=== PATIENT | male | born 1935 | race Caucasian/White ===

== ENCOUNTER → 2016-09-04 | Outpatient (CLI) | payer OTHER ==
--- NOTE | 2016-09-04 10:19 | MR ---
MRI Lumbar Spine Without Contrast. HISTORY: Low back pain. ICD-10 code M54.5 COMPARISON: August 27, 2015. TECHNIQUE: MRI was performed of the lumbar spine using a 1.5 [employer] MRI system. Sagittal and axial carolann ging was obtained with standard imaging sequences. FINDINGS: There is a mild dextroscoliotic curvature of the lumbar spine. There is disk desiccation an d disk height narrowing and osteophytosis at multiple levels in the lumbar spine. No evidence for com pression fracture. Conus is visualized at L1 and is unremarkable. A benign-appearing lesion is seen in the left ilium near the sacroiliac joint stable in appearance. N o aggressive bone lesion is visualized. Renal cortical cysts are seen right kidney similar in appeara nce although incompletely included in the field of view. T12-L1 level demonstrates a minimal broad-based annular bulge causing no significant encroachment. L1-L2 level demonstrates a broad-based annular bulge and facet arthropathy causing mild spinal canal and right lateral recess narrowing similar in appearance. There is moderate right neural foraminal an d mild left neural foraminal narrowing similar in appearance. L2-L3 level demonstrates a broad-based annular bulge and moderate facet arthropathy. This is causing moderate central spinal canal and bilateral lateral recess narrowing, left greater than right. There is moderate bilateral neural foraminal narrowing. Similar appearance to the prior exam. L3-L4 level demonstrates a broad-based annular bulge. There is a left lateral osteophyte. Moderate fa cet arthropathy is seen bilaterally. There is moderate central spinal canal narrowing with slight wor sening over the interval and bilateral lateral recess narrowing. Severe left and moderate to severe r ight neural foraminal narrowing similar in appearance. L4-L5 level demonstrates a broad-based annular bulge and severe facet arthropathy bilaterally. This i s causing severe central spinal canal and bilateral lateral recess narrowing. Severe bilateral neural foraminal narrowing. Similar appearance to the prior examination. L5-S1 level demonstrates a broad-based annular bulge. There is a left parasagittal protrusion mildly compressing the left S1 nerve root at the lateral recess similar in appearance. Facet arthropathy is seen bilaterally. Severe bilateral neural foraminal narrowing unchanged. 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 There may be mi nimal progression of disease at L3-L4 with an otherwise stable appearance. Level of most severe centr al spinal canal narrowing is at L4-L5 stable in appearance. Other levels as detailed above.
== END ==
LOC: FIMAGING 08:45
PROVIDERS: ATTEND Physician Assistant
DX: M51.86 Other intervertebral disc disorders, lumbar region (principal)

== ENCOUNTER 2016-09-27 08:10 | Emergency (ER) | payer OTHER ==
[2016-09-27 08:16] VITALS: RESP 16
--- NOTE | 2016-09-27 09:15 | EDPHY ---
H & P Time Seen by Provider: 09/27/16 08:44 HPI/ROS: Chief complaint. Wrist injury HPI. 81-year-old male fell getting out of the shower yesterday. He thinks he passed out and fell backwards into the shower. He stuck his arm out to struck tried to break his fall and sustained injury to his right wrist. Denies headache neck pain chest back pain abdominal pain other injuries. He has had a previous syncopal episode. This occurred yesterday. He has no symptoms today other than right wrist pain and swelling. Patient is right handed. No previous injury ROS Constitutional. no fever/chills, no weakness Eyes. no problems with vision ENT. no sore throat, no nasal drainage Cardiovascular. no chest pain Respiratory. no shortness of breath, no cough Abdominal. no abdominal pain, no nausea/vomiting, no diarrhea . no problems urinating MS. Right wrist pain and swelling Skin. no rash Lymph. no swollen glands Neuro. no headache, no dizziness, no difficulty walking or with speech Past Medical/Surgical History: Past medical history significant for hypertension, dyslipidemia, hypothyroid, coronary artery bypass graft, leukemia with splenectomy Social History: , nonsmoker, no alcohol Smoking Status: Never smoked Physical Exam: General Appearance: Alert pleasant well-developed male mild distress vital signs stable Eyes: Pupils equal and round no pallor or injection. ENT, Mouth: Mucous membranes are moist. Respiratory: There are no retractions, lungs are clear to auscultation. Cardiovascular: Regular rate and rhythm. Gastrointestinal: Abdomen is soft and nontender, no masses, bowel sounds normal. Neurological: Awake and alert, sensory and motor exams grossly normal. Skin: Warm and dry, no rashes. Musculoskeletal: Neck is supple nontender. Extremities tenderness and swelling to the dorsum of the right wrist over the distal radius. No significant deformity. Psychiatric: Patient is oriented X 3, there is no agitation. Constitutional: Initial Vital Signs Temperature (C) 36.3 C 09/27/16 08:11 Heart Rate 81 09/27/16 08:11 Respiratory Rate 16 09/27/16 08:11 Blood Pressure 149/75 H 09/27/16 08:11 O2 Sat (%) 90 L 09/27/16 08:11 O2 Delivery Mode Room Air Allergies/Adverse Reactions: Iodinated Contrast Media - Oral and [IV Dye, Iodine Containing Contrast ] Allergy (Intermediate, Verified 07/09/13 15:03) VEINS "POPPED UP AND WERE HARD" azithromycin [From Zithromax] Allergy (Verified 12/06/14 14:32) ceftriaxone sodium [From Rocephin] Allergy (Verified 12/06/14 14:31) Home Medications: Medication Instructions Recorded Aspirin [Aspirin 81mg (*)] 81 mg PO HS 12/06/14 Carvedilol [Coreg (*)] 3.125 mg PO HS 12/06/14 Levothyroxine [Synthroid 75 mcg 75 mcg PO HS 12/06/14 (*)] Simvastatin [Zocor] 40 mg PO HS 12/06/14 predniSONE 10 mg PO DAILY PRN 12/06/14 Colesevelam HCl [Welchol (*)] 3.75 mg PO DAILY 12/08/14 Acyclovir [Zovirax 400 mg (*)] 400 mg PO BID 06/17/15 Allopurinol [Allopurinol 300 MG 300 mg PO HS 06/17/15 (RX)] Herbals/Supplements -Info Only 1 ea PO DAILY 06/17/15 Lisinopril [Zestril 5 mg (*)] 5 mg PO HS 06/17/15 Mbx Solution 5 ml PO ACHS 06/17/15 Slo-Niacin 1 tab PO HS 06/17/15 Sulfamethox/Tmp 800/160 mg 1 tab PO MWF 06/17/15 [Bactrim DS] Acetaminophen [Tylenol 325mg (*)] 650 mg PO Q6 PRN #0 tab 06/20/15 Acyclovir [Zovirax 400 mg (*)] 400 mg PO BID #0 tab 06/20/15 Allopurinol [Allopurinol 300 MG 300 mg PO HS #0 tab 06/20/15 (RX)] Ascorbic Acid [Vitamin C 500 mg 1,000 mg PO QID #0 tab 06/20/15 (*)] Aspirin [Aspirin 81mg (*)] 81 mg PO HS #0 tab 06/20/15 Atorvastatin Calcium [Lipitor 20 20 mg PO HS #0 tab 06/20/15 mg (*)] Carvedilol [Coreg (*)] 3.125 mg PO HS #0 tab 06/20/15 Colestipol HCl [Colestid] 5 gm PO DAILY #0 pkt 11/10/15 Levothyroxine [Synthroid 75 mcg 75 mcg PO HS #0 tab 06/20/15 (*)] Niacin ER [Niaspan 1000 mg (*)] 1,000 mg PO HS #0 tab 06/20/15 Pantoprazole Sodium [Protonix IV 40 mg IV BID #0 vial 06/20/15 (*)] Sulfamethox/Tmp 800/160 mg 1 ea PO MWF #0 tab 06/20/15 [Bactrim DS] levOFLOXACIN [levAQUIN (*)] 750 mg PO Q2D@1000 #0 tab 06/20/15 predniSONE 20 mg PO DAILY #0 tab 06/20/15 Medical Decision Making - Diagnostics Imaging: X-ray right wrist interpreted by me as without fracture dislocation. I reviewed the film and discussed it with Dr. Chiang who agrees with the interpretation. 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 Post splint application shows good anatomic position and distal motor vascular sensitivity to be intact ED Course/Re-evaluation: Re-evaluation patient is stable. The patient and I discussed treatment plan including criteria for return and importance of follow-up. I recommended that we do an EKG because of the syncopal episode. However the patient declines and he will see his regular physician for further workup Differential Diagnosis: I considered fracture, dislocation, sprain of the wrist. I considered cardiac arrhythmia is as possible etiology of his syncope Departure - Departure Disposition: Home, Routine, Self-Care Clinical Impression: Right wrist sprain Qualifiers: Encounter type: initial encounter Qualified Code(s): S63.501A - Unspecified sprain of right wrist, initial encounter Condition: Good Instructions: Wrist Sprain (ED) Additional Instructions: Ice off and on for the next 24 hours. Ibuprofen 600 mg every 6 hours. Pain medication that you have at home in addition for pain. Splint on for 1 week. Follow up with Dr. Painter for continuing pain. Please follow-up with Dr. Painter for further evaluation of passing out episode Referrals: Pete Painter MD [Primary Care Provider] - As per Instructions
[2016-09-27 09:24] VITALS: BP 146/85; PULSE 84; TEMP 99.1; O2SAT 95
== END 2016-09-27 09:23 | disposition home or self-care (01) ==
DX: S63.501A Unspecified sprain of right wrist, initial encounter (principal); I10 Essential (primary) hypertension; Z95.1 Presence of aortocoronary bypass graft; Z79.82 Long term (current) use of aspirin; W18.2XXA Fall in (into) shower or empty bathtub, initial encounter
CPT/HCPCS: 73110; 99284; L3807; L3908

== ENCOUNTER 2016-10-17 19:52 | Emergency (ER) | payer OTHER, BC ==
[2016-10-17] MEDS ORDERED: IPRATROPIUM/ALBUTEROL 3 ML DEYVIAL IH ONE (20:30)
[2016-10-17 21:23] LABS: % IMMATURE GRANULYOCYTES 0.3 % (0.0-1.1); ABSOLUTE IMMATURE GRANULOCYTES 0.02 10^3/uL (0.00-0.10); ABSOLUTE NRBC COUNT 0.02 10^3/uL (0-0.01); ADD DIFF? NO; ADD MORPH? NO; ADD SCAN? NO; ATYPICAL LYMPHOCYTE FLAG 10 (0-99); FRAGMENT RBC FLAG 0 (0-99); HEMOGLOBIN 13.3 g/dL (13.7-17.5); LEFT SHIFT FLG 0 (0-99); LIPEMIA HEMOLYSIS FLAG 90 (0-99); MEAN CELL HEMOGLOBIN 34.8 pg (27.9-34.1); MEAN CELL HEMOGLOBIN CONCENTR. 34.1 g/dL (32.4-36.7); MEAN CELL VOLUME 102.1 fL (81.5-99.8); MEAN PLATELET VOLUME 9.6 fL (8.7-11.7); NRBC-AUTO% 0.3 % (0.0-0.2); PLATELET CLUMPS FLAG 0 (0-99); PLATELET COUNT 238 10^3/uL (150-400); RED BLOOD CELL COUNT 3.82 10^6/uL (4.40-6.38); RED CELL DISTRIBUTION WIDTH 14.8 % (11.5-15.2)
[2016-10-17 21:28] LABS: INR 0.96 (0.83-1.16); PROTIME(PATIENT) 12.7 SEC (12.0-15.0)
[2016-10-17 21:29] LABS: APTT 27.3 SEC (23.0-38.0)
[2016-10-17 21:44] LABS: ANION GAP 7 mEq/L (8-16); CALCIUM 8.8 mg/dL (8.5-10.4); CARBON DIOXIDE 22 mEq/l (22-31); CHLORIDE 106 mEq/L (97-110); GLOMERULAR FILTRATION RATE > 60; GLUCOSE 158 mg/dL (70-100); POTASSIUM 4.2 mEq/L (3.5-5.2); SODIUM 135 mEq/L (134-144)
--- NOTE | 2016-10-17 21:44 | EDPHY ---
HPI/HX/ROS/PE/MDM Narrative: CHIEF COMPLAINT: "I've just been coughing and started running a fever." HPI: The patient is a 81 y/o male, with a history of leukemia, arriving with his complaining of a cough for the last 3 days and a fever of 101.7F today. He describes a productive cough with yellow phlegm. He noticed mildly increased shortness of breath while lying down, but turning up his CPAP machine alleviated those symptoms completely. He has been taking Advil and prednisone for his symptoms today without improvement yet. He also has a history of leukemia and prostate cancer, but has not been on chemotherapy since last year. His spoke with Dr. Higginbotham, oncology, who referred them to the ED due to his fever. REVIEW OF SYSTEMS: Aside from elements discussed in the HPI, a comprehensive 10-point review of systems was reviewed and is negative. PMH: Leukemia for 30 years,primarily in remission and not currently on chemotherapy. Lymphoma x 2 years. Prostate cancer. Sleep apnea SOCIAL HISTORY: at bedside. Oncologist: Dr. Cardoso PHYSICAL EXAM: General:Patient is alert, in no acute distress. ENT:Eyes are normal to inspection. ENT inspection normal. Neck: Normal inspection. Full range of motion. Respiratory:No respiratory distress. Decreased air movement, no rhonchi. Cardiovascular: Regular rate and rhythm. Strong peripheral pulses. Normal cap refill. Abdomen:The abdomen is nontender to palpation. There are no peritoneal signs. There are normal bowel sounds. Back: Normal to inspection. No tenderness to palpation. Skin: Normal color. No rash. Warm and dry. Extremities: Trace lower leg edema bilaterally, otherwise normal appearance. Full range of motion. Neuro: Oriented x3. Normal motor function. Normal sensory function. ED Course: Plan for IV, sepsis labs, flu swab, and chest x-ray. Duo neb administered for symptoms. Study: Chest x-ray Indication: Cough Results: Chest x-ray was obtained. The results of the study are 1. Hyperexpansion and peribronchial thickening suggests airways disease. 2. Basilar opacities, atelectasis versus pneumonia. 3. See above report for additional findings. The study was read by the radiologist, Dr. Ceja. I viewed the images myself on the PACS system. 2240: Consulted with Dr. Higginbotham, oncology. Labs are unremarkable. She is comfortable discharging him home on antibiotics and following up as an outpatient. 2250: One dose of IV Levaquin administered here. Patient has a follow up appointment scheduled with his oncologist tomorrow, who is aware of his visit here tonight and will evaluate further antibiotics. 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 His workup is negative for pneumonia, severe sepsis or septic shock. There is no clear etiology of symptoms other than cough. We will treat the patient empirically with Levaquin and he has a follow- up appointment with oncology tomorrow morning further evaluation. His vital signs are normal and I do not see evidence for need for inpatient admission at this time. - Data Points Laboratory Results: Laboratory Results 10/17/16 21:08 10/17/16 21:08 10/17/16 10/17/16 10/17/16 21:08 21:08 21:08 WBC 6.96 10^3/uL 10^3/uL (3.80-9.50) RBC 3.82 10^6/uL L 10^6/uL (4.40-6.38) Hgb 13.3 g/dL L g/dL (13.7-17.5) Hct 39.0 % L % (40.0-51.0) MCV 102.1 fL H fL (81.5-99.8) MCH 34.8 pg H pg (27.9-34.1) MCHC 34.1 g/dL g/dL (32.4-36.7) RDW 14.8 % % (11.5-15.2) Plt Count 238 10^3/uL 10^3/uL (150-400) MPV 9.6 fL fL (8.7-11.7) Neut % (Auto) 74.3 % H % (39.3-74.2) Lymph % (Auto) 9.2 % L % (15.0-45.0) Crockett % (Auto) 9.6 % % (4.5-13.0) Eos % (Auto) 6.2 % % (0.6-7.6) Baso % (Auto) 0.4 % % (0.3-1.7) Nucleat RBC Rel Count 0.3 % H % (0.0-0.2) Absolute Neuts (auto) 5.17 10^3/uL 10^3/uL (1.70-6.50) Absolute Lymphs (auto) 0.64 10^3/uL L 10^3/uL (1.00-3.00) Absolute Monos (auto) 0.67 10^3/uL 10^3/uL (0.30-0.80) Absolute Eos (auto) 0.43 10^3/uL H 10^3/uL (0.03-0.40) Absolute Basos (auto) 0.03 10^3/uL 10^3/uL (0.02-0.10) Absolute Nucleated RBC 0.02 10^3/uL H 10^3/uL (0-0.01) Immature Gran % 0.3 % % (0.0-1.1) Immature Gran # 0.02 10^3/uL 10^3/uL (0.00-0.10) PT 12.7 SEC SEC (12.0-15.0) INR 0.96 (0.83-1.16) APTT 27.3 SEC SEC (23.0-38.0) VBG Lactic Acid Sodium 135 mEq/L mEq/L (134-144) Potassium 4.2 mEq/L mEq/L (3.5-5.2) Chloride 106 mEq/L mEq/L (97-110) Carbon Dioxide 22 mEq/l mEq/l (22-31) Anion Gap 7 mEq/L L mEq/L (8-16) BUN 18 mg/dL mg/dL (7-23) Creatinine 1.0 mg/dL mg/dL (0.7-1.3) Estimated GFR > 60 Glucose 158 mg/dL H mg/dL (70-100) Calcium 8.8 mg/dL mg/dL (8.5-10.4) Influenza Typ A,B (DFA) 10/17/16 10/17/16 21:08 20:35 WBC RBC Hgb Hct MCV MCH MCHC RDW Plt Count MPV Neut % (Auto) Lymph % (Auto) Crockett % (Auto) Eos % (Auto) Baso % (Auto) Nucleat RBC Rel Count Absolute Neuts (auto) Absolute Lymphs (auto) Absolute Monos (auto) Absolute Eos (auto) Absolute Basos (auto) Absolute Nucleated RBC Immature Gran % Immature Gran # PT INR APTT VBG Lactic Acid 0.8 mmol/L mmol/L (0.7-2.1) Sodium Potassium Chloride Carbon Dioxide Anion Gap BUN Creatinine Estimated GFR Glucose Calcium Influenza Typ A,B (DFA) NEGATIVE FOR FLU (NEGATIVE) Medications Given: Discontinued Medications Albuterol/Ipratropium (Duoneb) 3 ml IH EDNOW ONE Stop: 10/17/16 20:31 Last Admin: 10/17/16 20:40 Dose: 3 ml General Time Seen by Provider: 10/17/16 20:37 Initial Vital Signs: Initial Vital Signs Temperature (C) 37.9 C 10/17/16 20:12 Heart Rate 97 10/17/16 20:12 Respiratory Rate 18 10/17/16 20:12 Blood Pressure 158/93 H 10/17/16 20:12 O2 Sat (%) 90 L 10/17/16 20:12 O2 Delivery Mode Room Air Allergies/Adverse Reactions: Iodinated Contrast Media - Oral and [IV Dye, Iodine Containing Contrast ] Allergy (Intermediate, Verified 07/09/13 15:03) VEINS "POPPED UP AND WERE HARD" azithromycin [From Zithromax] Allergy (Verified 12/06/14 14:32) ceftriaxone sodium [From Rocephin] Allergy (Verified 12/06/14 14:31) Home Medications: Medication Instructions Recorded Carvedilol [Coreg (*)] 3.125 mg PO HS 12/06/14 Levothyroxine [Synthroid 75 mcg 75 mcg PO HS 12/06/14 (*)] predniSONE 10 mg PO DAILY PRN 12/06/14 Colesevelam HCl [Welchol (*)] 3.75 mg PO DAILY 12/08/14 Herbals/Supplements -Info Only 1 ea PO DAILY 06/17/15 Lisinopril [Zestril 5 mg (*)] 5 mg PO HS 06/17/15 Slo-Niacin 1 tab PO HS 06/17/15 Ascorbic Acid [Vitamin C 500 mg 1,000 mg PO QID #0 tab 06/20/15 (*)] Aspirin [Aspirin 81mg (*)] 81 mg PO HS #0 tab 06/20/15 Carvedilol [Coreg (*)] 3.125 mg PO HS #0 tab 06/20/15 Colestipol HCl [Colestid] 5 gm PO DAILY #0 pkt 06/20/15 Levothyroxine [Synthroid 75 mcg 75 mcg PO HS #0 tab 06/20/15 (*)] Niacin ER [Niaspan 1000 mg (*)] 1,000 mg PO HS #0 tab 06/20/15 Pantoprazole Sodium [Protonix IV 40 mg IV BID #0 vial 06/20/15 (*)] predniSONE 20 mg PO DAILY #0 tab 06/20/15 Departure - Departure Disposition: Home, Routine, Self-Care Clinical Impression: Bronchitis Condition: Good Instructions: Acute Bronchitis (ED) Additional Instructions: Follow up with your oncologist tomorrow as scheduled. Return to the ED for any worsening of condition. Referrals: Pete Painter MD [Primary Care Provider] - As per Instructions Bridger Cardoso MD [Medical Doctor] - As per Instructions Report Scribed for: Alex Wang Report Scribed by: Lynn Newman Date of Report: 10/17/16 Time of Report: 21:53 Physician Review and Approval Statement: Portions of this note were transcribed by an ED scribe. I personally performed the history, physical exam, and medical decision making; and confirm the accuracy of the information in the transcribed note.
[2016-10-17 23:00] VITALS: BP 132/76; PULSE 85; RESP 16; TEMP 99.5; O2SAT 94
== END 2016-10-17 22:58 | disposition home or self-care (01) ==
DX: J20.9 Acute bronchitis, unspecified (principal); Z79.82 Long term (current) use of aspirin; Z85.46 Personal history of malignant neoplasm of prostate

== ENCOUNTER → 2017-05-20 | Outpatient (CLI) | payer OTHER | LOC: FIMAGING 10:42 | PROVIDERS: ATTEND Physician Assistant | DX: R13.10 Dysphagia, unspecified (principal); R05 Cough; Z92.3 Personal history of irradiation; Z92.21 Personal history of antineoplastic chemotherapy; Z85.6 Personal history of leukemia; Z85.46 Personal history of malignant neoplasm of prostate; Z95.1 Presence of aortocoronary bypass graft | CPT/HCPCS: 74230; 92611; G8996; G8997; G8998 ==

== ENCOUNTER → 2017-05-22 | Outpatient (CLI) | payer OTHER | LOC: FIMAGING 11:38 | PROVIDERS: ATTEND Physician Assistant | DX: J40 Bronchitis, not specified as acute or chronic (principal); Z95.9 Presence of cardiac and vascular implant and graft, unspecified; Z96.612 Presence of left artificial shoulder joint ==

== ENCOUNTER → 2017-06-06 | Outpatient (CLI) | payer OTHER | LOC: EDSTATUS 11:44 → FIMAGING 12:17 | PROVIDERS: ATTEND Physician Assistant | DX: R05 Cough (principal) ==

== ENCOUNTER → 2018-01-16 | Outpatient (CLI) | payer OTHER ==
[~2018-01-16] MED LIST: IOPAMIDOL (ISOVUE-370) 150 ML BTL IV ONE
== END ==
LOC: FIMAGING 13:10
PROVIDERS: ATTEND Surgery
DX: I74.3 Embolism and thrombosis of arteries of the lower extremities (principal); I73.9 Peripheral vascular disease, unspecified; I70.0 Atherosclerosis of aorta
CPT/HCPCS: 75635; Q9967

== ENCOUNTER → 2018-09-02 | Outpatient (CLI) | payer OTHER | LOC: BHFA 11:00 | PROVIDERS: ATTEND Internal Medicine Interventional Cardiology | DX: R00.1 Bradycardia, unspecified (principal) ==

== ENCOUNTER 2018-10-06 13:48 | Emergency (ER) | payer OTHER ==
[2018-10-06] MEDS ORDERED: ONDANSETRON 4 MG/2 ML VIAL IVP ONE (14:10)
[2018-10-06] MEDS ORDERED: HYDROmorphONE/DILAUDID 2 MG/ML INJ IVP ONE (14:10)
[2018-10-06] MEDS ORDERED: NS 1,000 ML IV ONE (14:10)
[2018-10-06] MEDS ORDERED: methylPREDNISolone SOD SUCC 125 MG/2 ML VIAL IVP ONE (14:10)
--- NOTE | 2018-10-06 14:11 | EDPHY ---
H & P Stated Complaint: abd. pain - Personal History Current Tetanus Diphtheria and Acellular Pertussis (TDAP): Yes Tetanus Vaccine Date: unknown - Medical/Surgical History Hx Asthma: No Hx Chronic Respiratory Disease: No Hx Diabetes: Yes Hx Cardiac Disease: Yes Hx Renal Disease: No Hx Cirrhosis: No Hx Alcoholism: No Hx HIV/AIDS: No Hx Splenectomy or Spleen Trauma: Yes Other PMH: htn, high cholesterol, hypothyroid, cabg, leukemia, total r knee x 2 , left shoulder replacement, spleenectomy for leukemia. lymphoma (dx 10/2014) trx chemo and radiation, prostate ca (2016), PE. diabetes - Social History Smoking Status: Never smoked Time Seen by Provider: 10/06/18 14:00 Constitutional: Initial Vital Signs Temperature (C) 36.5 C 10/06/18 13:55 Heart Rate 52 L 10/06/18 13:55 Respiratory Rate 18 10/06/18 13:55 Blood Pressure 160/75 H 10/06/18 13:55 O2 Sat (%) 94 10/06/18 13:55 O2 Delivery Mode Nasal Cannula O2 (L/minute) 2 Allergies/Adverse Reactions: Iodinated Contrast- Oral and IV Dye [IV Dye, Iodine Containing Contrast ] Allergy (Verified 10/06/18 13:54) YEARS AGO HAD-VEINS "POPPED UP AND WERE HARD" Home Medications: Medication Instructions Recorded Carvedilol [Coreg (*)] 3.125 mg PO HS 12/06/14 Levothyroxine [Synthroid 75 mcg 75 mcg PO HS 12/06/14 (*)] predniSONE 10 mg PO DAILY PRN 12/06/14 Colesevelam HCl [Welchol (*)] 3.75 mg PO DAILY 12/08/14 Herbals/Supplements -Info Only 1 ea PO DAILY 06/17/15 Lisinopril [Zestril 5 mg (*)] 5 mg PO HS 06/17/15 Ascorbic Acid [Vitamin C 500 mg 1,000 mg PO QID #0 tab 06/20/15 (*)] Carvedilol [Coreg (*)] 3.125 mg PO HS #0 tab 06/20/15 Colestipol HCl [Colestid] 5 gm PO DAILY #0 pkt 06/20/15 Levothyroxine [Synthroid 75 mcg 75 mcg PO HS #0 tab 06/20/15 (*)] Niacin ER [Niaspan 1000 mg (*)] 1,000 mg PO HS #0 tab 06/20/15 predniSONE 20 mg PO DAILY #0 tab 06/20/15 Eliquis 02/23/18 Hydrocodone/APAP 5/325 [Friedens 1 - 2 tab PO Q4H PRN #10 tab 10/06/18 5/325] Medical Decision Making - Diagnostics Imaging: Discussed imaging studies w/ call center recruiter Radiologist, I viewed and interpreted images myself ED Course/Re-evaluation: CHIEF COMPLAINT: LLQ abdominal pain HISTORY OF PRESENT ILLNESS: The patient is an 83 y/o male with a history of hypertension, diabetes, leukemia, and lymphoma who arrives with his at the recommendation of his PCP for abdominal CT due to severe LLQ pain onset today. He was in [place] over the weekend and describes recurrent urge to have a bowel movement without passing much stool. He returned home and has since had a normal bowel movement. Over the last day, he developed severe LLQ pain. He denies associated vomiting, diarrhea, urinary symptoms, or fever. He drank oral contrast at his PCP's office today in preparation for an abdominal CT and vomited some of this up en route here. He has no prior history of diverticulitis. REVIEW OF SYSTEMS: A 10 point review of systems was performed and is negative with the exception of the elements mentioned in the history of present illness. PHYSICAL EXAM: HR, BP, O2 Sat, RR. Temp noted General Appearance: Alert, well hydrated, appropriate, and non-toxic appearing. Head: Atraumatic without scalp tenderness or obvious injury Eyes: Pupils equal, round, reactive to light and accommodation, EOMI, no trauma , no injection. Nose: Atraumatic, no rhinorrhea, clear. Throat: There is no erythema or exudates, no lesions, normal tonsils, mucus membranes moist. Neck: Supple, non-tender, no lymphadenopathy. Respiratory: No retractions, no distress, no wheezes, and no accessory muscle use. Lungs are clear to auscultation bilaterally. Cardiovascular: Regular rate and rhythm, no murmurs, rubs, or gallops. Good capillary refill all extremities. Gastrointestinal: Abdomen is soft, LLQ tenderness, non-distended, no masses, no rebound, no guarding, no peritoneal signs. Musculoskeletal: Normal active ROM of all extremities, atraumatic. Neurological: Alert, appropriate, and interactive. The patient has non-focal cranial nerves, motor, sensory, and cerebellar exam. Skin: No rashes, good turgor, no nodules on palpation. PAST MEDICAL HISTORY: Hypertension, high cholesterol, hypothyroid, leukemia, lymphoma (dx 10/2014) - chemo and radiation, prostate cancer (2016), PE, diabetes PAST SURGICAL HISTORY: CABG, total right knee x 2, left shoulder replacement, splenectomy for leukemia. SOCIAL HISTORY: at bedside. Retired. Nonsmoker. PCP: Dr. Painter, CARIDAD beaulieu - [phone] DIAGNOSTICS/PROCEDURES/CRITICAL CARE TIME: Abdominal CT: pending at shift change. DIFFERENTIAL DIAGNOSIS: The differential diagnosis for the patient's abdominal pain included but was not limited to appendicitis, cholecystitis, hernias, testicular torsion, gastritis, and urinary tract infection. MEDICAL DECISION MAKING: This is an 83 y/o male who presents with a 1-day history of acute onset LLQ abdominal pain. He has LLQ tenderness on exam. Presentation most consistent with diverticulitis. Plan for IV, labs, abdominal CT, and symptomatic management. 1mg IV Dilaudid, 4mg IV Zofran, 1L IV NS ordered. CT is request IV contrast pretreatment with Benadryl, Solumedrol. PCP would like call with update once we have results. CARIDAD beaulieu - [phone] Patient care signed out to Dr. Edward at shift change pending imaging results. ( Pritesh Her) 3:00 p.m.-I assumed care of this patient at shift change. Awaiting CT abdomen and pelvis to rule out diverticulitis. 4 p.m.-CT scan reported by Dr. Bo reveals a small distal left ureteral calculus and mild hydronephrosis. Results discussed with the patient. He is currently pain-free and would like to go home. Abdomen is soft and nontender. Warning signs discussed. (Harmony Edward) Differential Diagnosis: Differential diagnosis includes though it is not limited to appendicitis, cholecystitis, diverticulitis, pyelonephritis, bowel perforation, small bowel obstruction. (Harmony Edward) - Data Points Laboratory Results: Laboratory Results 10/06/18 14:20 10/06/18 14:20 02/10/06/18 10/06/18 14:39 14:20 14:20 WBC 10.41 10^3/uL H 10^3/uL (3.80-9.50) RBC 3.47 10^6/uL L 10^6/uL (4.40-6.38) Hgb 12.4 g/dL L g/dL (13.7-17.5) POC Hgb 12.2 gm/dL L gm/dL (13.7-17.5) Hct 36.7 % L % (40.0-51.0) POC Hct 36 % L % (40-51) MCV 105.8 fL H fL (81.5-99.8) MCH 35.7 pg H pg (27.9-34.1) MCHC 33.8 g/dL g/dL (32.4-36.7) RDW 13.9 % % (11.5-15.2) Plt Count 213 10^3/uL 10^3/uL (150-400) MPV 9.8 fL fL (8.7-11.7) Neut % (Auto) 68.9 % % (39.3-74.2) Lymph % (Auto) 16.8 % % (15.0-45.0) Love % (Auto) 12.4 % % (4.5-13.0) Eos % (Auto) 1.3 % % (0.6-7.6) Baso % (Auto) 0.3 % % (0.3-1.7) Nucleat RBC Rel Count 0.3 % H % (0.0-0.2) Absolute Neuts (auto) 7.17 10^3/uL H 10^3/uL (1.70-6.50) Absolute Lymphs (auto) 1.75 10^3/uL 10^3/uL (1.00-3.00) Absolute Monos (auto) 1.29 10^3/uL H 10^3/uL (0.30-0.80) Absolute Eos (auto) 0.14 10^3/uL 10^3/uL (0.03-0.40) Absolute Basos (auto) 0.03 10^3/uL 10^3/uL (0.02-0.10) Absolute Nucleated RBC 0.03 10^3/uL H 10^3/uL (0-0.01) Immature Gran % 0.3 % % (0.0-1.1) Immature Gran # 0.03 10^3/uL 10^3/uL (0.00-0.10) POC Sodium 140 mEq/L mEq/L (135-145) Sodium 137 mEq/L mEq/L (135-145) POC Potassium 4.3 mEq/L mEq/L (3.3-5.0) Potassium 4.4 mEq/L mEq/L (3.3-5.0) POC Chloride 110 mEq/L mEq/L (97-110) Chloride 109 mEq/L mEq/L (97-110) Carbon Dioxide 19 mEq/l L mEq/l (22-31) POC Total CO2 20 mEq/L L mEq/L (22-31) Anion Gap 9 mEq/L mEq/L (6-14) POC BUN 28 mg/dL H mg/dL (7-23) BUN 31 mg/dL H mg/dL (7-23) Creatinine 1.3 mg/dL mg/dL (0.7-1.3) POC Creatinine 1.4 mg/dL H mg/dL (0.7-1.3) Estimated GFR 53 Glucose 163 mg/dL H mg/dL (70-100) POC Glucose 172 mg/dL H mg/dL (70-100) Calcium 9.4 mg/dL mg/dL (8.5-10.4) Total Bilirubin 0.4 mg/dL mg/dL (0.1-1.4) Conjugated Bilirubin 0.3 mg/dL mg/dL (0.0-0.5) Unconjugated Bilirubin 0.1 mg/dL mg/dL (0.0-1.1) AST 24 IU/L IU/L (17-59) ALT 30 IU/L IU/L (21-72) Alkaline Phosphatase 46 IU/L IU/L (38-126) Total Protein 6.4 g/dL g/dL (6.3-8.2) Albumin 4.0 g/dL g/dL (3.5-5.0) Lipase 170 IU/L IU/L (23-300) Medications Given: Discontinued Medications Diphenhydramine HCl (Benadryl Injection) 25 mg IVP EDNOW ONE Stop: 10/06/18 14:11 Last Admin: 10/06/18 14:21 Dose: 25 mg Hydromorphone HCl (Dilaudid) 1 mg IVP EDNOW ONE Stop: 10/06/18 14:11 Last Admin: 10/06/18 14:25 Dose: 1 mg Sodium Chloride (Ns) 1,000 mls @ 0 mls/hr IV EDNOW ONE; Wide Open PRN Reason: Protocol Stop: 10/06/18 14:11 Last Admin: 10/06/18 14:28 Dose: 1,000 mls Methylprednisolone Sodium Succinate (Solu-Medrol) 125 mg IVP EDNOW ONE Stop: 10/06/18 14:11 Last Admin: 10/06/18 14:28 Dose: 125 mg Ondansetron HCl (Zofran) 4 mg IVP EDNOW ONE Stop: 10/06/18 14:11 Last Admin: 10/06/18 14:21 Dose: 4 mg Point of Care Test Results: Chemistry 10/06/18 14:39 POC Sodium 140 mEq/L mEq/L (135-145) POC Potassium 4.3 mEq/L mEq/L (3.3-5.0) POC Chloride 110 mEq/L mEq/L (97-110) POC Total CO2 20 mEq/L L mEq/L (22-31) POC BUN 28 mg/dL H mg/dL (7-23) POC Creatinine 1.4 mg/dL H mg/dL (0.7-1.3) POC Glucose 172 mg/dL H mg/dL (70-100) ISTAT H&H 10/06/18 14:39 POC Hgb 12.2 gm/dL L gm/dL (13.7-17.5) POC Hct 36 % L % (40-51) Departure - Departure Disposition: Home, Routine, Self-Care Clinical Impression: Renal colic on left side Condition: Good Instructions: Kidney Stones (ED), Renal Colic (ED) Referrals: Pete Painter MD [Primary Care Provider] - As per Instructions Prescriptions: Hydrocodone/APAP 5/325 [Friedens 5/325] 1 - 2 tab PO Q4H PRN #10 tab PRN Reason: Pain, Moderate Report Scribed for: Pritesh Her Report Scribed by: Lynn Newman Date of Report: 10/06/18 Time of Report: 14:49
[2018-10-06 14:45] LABS: PLATELET COUNT 213 10^3/uL (150-400)
[2018-10-06] MEDS ORDERED: IOPAMIDOL (ISOVUE-300) 100 ML BTL ONE (15:11)
[2018-10-06 16:54] VITALS: BP 142/74
== END 2018-10-06 16:53 | disposition home or self-care (01) ==
DX: N13.2 Hydronephrosis with renal and ureteral calculous obstruction (principal); E86.9 Volume depletion, unspecified; I10 Essential (primary) hypertension; E78.00 Pure hypercholesterolemia, unspecified; E11.9 Type 2 diabetes mellitus without complications; Z79.4 Long term (current) use of insulin
CPT/HCPCS: 74177; 96361; 96374; 96375; 99285; J1170; J1200; J2405; J2930; Q9967; 82435-PO; 82565-PO; 82947-PO; 84132-PO; 84295-PO; 84520-PO; 85014-ER

== ENCOUNTER 2018-10-29 08:47 | Observation (INO) | payer OTHER ==
[2018-10-29] MEDS ORDERED: FAMOTIDINE 20 MG/NACL 50 ML IV ONE (08:48)
[2018-10-29] MEDS ORDERED: methylPREDNISolone SOD SUCC 125 MG/2 ML VIAL IVP ONE (08:48)
[2018-10-29] MEDS ORDERED: DIAZEPAM 5 MG TAB PO ONE (08:48)
[2018-10-29] MEDS ORDERED: ceFAZolin 2 GM/DEXTROSE 100 ML IV ONE (08:48)
[2018-10-29] MEDS ORDERED: BACITRACIN IRRIGATION/NS 50,000 UNITS/1,000 ML BTL IRR ONE (08:48)
[2018-10-29] MEDS ORDERED: NS 1,000 ML IV ONE (08:48)
[2018-10-29 09:27] LABS: PLATELET COUNT 264 10^3/uL (150-400)
[2018-10-29 09:43] LABS: INR 1.06 (0.83-1.16); PROTIME(PATIENT) 13.4 SEC (12.0-15.0)
--- NOTE | 2018-10-29 09:50 | PDANEPAE ---
ANE Past Medical History - Cardiovascular History Hx Hypertension: No Hx Arrhythmias: Yes Hx Chest Pain: No Hx Coronary Artery / Peripheral Vascular Disease: Yes Hx CHF / Valvular Disease: No Hx Palpitations: No Cardiovascular History Comment: hyperlipidemia. pvd. psvt. cad. cabg 3v - Pulmonary History Hx COPD: No Hx Asthma/Reactive Airway Disease: No Hx Recent Upper Respiratory Infection: No Hx Oxygen in Use at Home: No Hx Sleep Apnea: Yes Pulmonary History Comment: HANSA POSITIVE- instructed pt to bring cpap. hx of PE - Neurologic History Hx Cerebrovascular Accident: No Hx Seizures: No Hx Dementia: No Neurologic History Comment: Paravertebral tumor T-2. 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 hypothyroidism - Renal History Hx Renal Disorders: No - Liver History Hx Hepatic Disorders: No - Neurological & Psychiatric Hx Hx Neurological and Psychiatric Disorders: No - Cancer History Hx Cancer: Yes Cancer History Comment: non-hodgkins lymphoma diagnosed 12/07/2014- chemo and radiation. prostate ca diagnosed 04/2016. mets to bone - Congenital Disorder History Hx Congenital Disorders: No - GI History GERD: no Hx Gastrointestinal Disorders: Yes Gastrointestinal History Comment: esophageal blockage x2 last being 03/19/18- karowe removed - Other Health History Other Health History: wears glasses for distance - Chronic Pain History Chronic Pain: Yes (back and feet) - Surgical History Prior Surgeries: 03/19/18 EGD for foreign body removal with Karowe. 12/19/14 port placement with Griffin. right TKA 07/08/2011 with Duc. CABG x3v 2007. LEFT shoulder replacement. SPLENECTOMY ANE Review of Systems Review of Systems: ANE Patient History - Allergies Allergies/Adverse Reactions: Iodinated Contrast- Oral and IV Dye [IV Dye, Iodine Containing Contrast ] Allergy (Verified 10/06/18 13:54) YEARS AGO HAD-VEINS "POPPED UP AND WERE HARD" - Home Medications Home medications: home medication list seen and reviewed Home Medications: Herbals/Supplements -Info Only 1 ea PO DAILY 06/17/15 [Last Taken 03/22/18] Lisinopril [Zestril 5 mg (*)] 5 mg PO DAILY 06/17/15 [Last Taken 2 Days Ago ~] Apixaban [Eliquis] 5 mg PO BID 02/23/18 [Last Taken 03/22/18] Ascorbic Acid [Vitamin C 500 mg (*)] 500 mg PO DAILY 10/29/18 [Last Taken Unknown] Colestipol HCl 5 gm PO BID 10/29/18 [Last Taken Unknown] Levothyroxine [Synthroid 75 mcg (*)] 75 mcg PO DAILY06 10/29/18 [Last Taken Unknown] Niacin ER [Niaspan 500 mg (*)] 500 mg PO HS 10/29/18 [Last Taken Unknown] - NPO status NPO Status: no food or drink >8 hours - Anes Hx Anes Hx: no prior problems - Smoking Hx Smoking Status: Never smoked - Family Anes Hx Family Hx Anesthesia Complications: none ANE Labs/Vital Signs - Labs Result Diagrams: 10/29/18 09:10 10/29/18 09:10 ANE Physical Exam - Airway Neck exam: FROM Mallampati Score: Class 3 Mouth exam: normal dental/mouth exam - Pulmonary Pulmonary: no respiratory distress, no rales or rhonchi, clear to auscultation - Cardiovascular Cardiovascular: regular rate and rhythym, no murmur, rub, or gallop - ASA Status ASA Status: III ANE Anesthesia Plan Anesthesia Plan: MAC
[2018-10-29] MEDS ORDERED: fentaNYL 100 MCG/2 ML INJ IVP PRN (09:51)
[2018-10-29] MEDS ORDERED: HYDROCODONE/APAP 5/325 TAB PO PRN (09:51)
[2018-10-29] MEDS ORDERED: NALOXONE HCL 0.4 MG/ML INJ IVP PRN (09:51)
[2018-10-29] MEDS ORDERED: NS 500 ML IV PRN (09:51)
[2018-10-29] MEDS ORDERED: PROMETHAZINE HCL 25 MG/ML INJ IVP PRN (09:51)
[2018-10-29] MEDS ORDERED: ONDANSETRON 4 MG/2 ML VIAL IVP PRN (09:51)
[2018-10-29] MEDS ORDERED: fentaNYL 100 MCG/2 ML INJ ONE (09:56)
[2018-10-29] MEDS ORDERED: PROPOFOL 200 MG/20 ML VIAL ONE ×2 (09:56→10:39)
--- NOTE | 2018-10-29 09:56 | PDGENHP ---
History & Physical Chief Complaint: sick sinus syndrome History of Present Illness: symptomatic SSS Relevant Physical Exam: NAD, RR/NR, no MRG, CTAB, A+Ox4 Cardiorespiratory Assessment: SSS -> DC PM
[2018-10-29] MEDS ORDERED: OXYCODONE/APAP 5/325 TAB PO PRN (11:22)
[2018-10-29] MEDS ORDERED: LIDOCAINE 1% 300 MG/30 ML SDV ONE (11:30)
[2018-10-29] MEDS ORDERED: BUPIVACAINE 0.75% 10 ML SDV ONE (11:30)
--- NOTE | 2018-10-29 11:33 | POSTANESTH ---
Post Anesthetic Evaluation Cardiovascular Status: Normal, Stable, Similar to Pre-Op Cond Respiratory Status: Normal, Stable, Similar to Pre-op Cond. Level of Consciousness/Mental Status: Can Participate in Eval, Alert and Oriented Pain Control: Adequate, Prn Tx Ordered Nausea/Vomiting Control: Adequate, Prn Tx Ordered Complications Possibly Related to Anesthesia: None Noted
[2018-10-29] MEDS ORDERED: ACETAMINOPHEN 325 MG TAB ONE (12:12)
[2018-10-29] MEDS: ACETAMINOPHEN 325 MG TAB PO PRN ×3 (12:18→23:44)
--- NOTE | 2018-10-29 12:35 | ECHO ---
[email or web address] [address] Main: [phone] Echocardiography Examination Transthoracic Name: ELOY LESTER MR#: [id number] Study Date: 10/29/2018 Study Time: 09:34 AM Date of : 1935 Age: 83 year(s) Height: 175.3 cm (69 in.) Weight: 88.45 kg (195 lb.) BSA: 2.04 m2 Gender: Male Examination: Limited Echo Contrast: Image Quality: Good Rhythm: Heart Rate: 68 bpm BP: 117 mmHg/55 mmHg Indication: Pre Pacemaker Procedure Staff Referring Physician: Barrel Cap Setter: Yonis Reed RDCS Reading Physician: Catracho Luis MD Requesting Provider: Ordering Physician: Mushtaq Layton MD Indication: Pre Pacemaker Measurements Chambers Label Value Normal Value IVSd, 2D 1 cm (0.6cm - 1.1cm) LVDd, 2D 4.8 cm (4.2cm - 5.9cm) LVDs, 2D 2.5 cm (2.1cm - 4cm) LVEF, 2D 63 % (54% - 74%) LVPWd, 2D 1.2 cm (0.6cm - 1cm) Conclusions Left Ventricle: CONCLUSIONS:1)Limited, focused echo to evaluate LV function.2)Normal LV size and systolic function with a LVEF of 63% and normal wall motions.3)Aortic valve sclerosis noted.4)Mild MR without MV prolapse. Findings Left Ventricle: This is a limited echo pre pacemaker to evaluate LV function.. CONCLUSIONS: Patient: ELOY LESTER Study Date: 10/29/2018 Page 1 of 2 09:34 AM 1)Limited, focused echo to evaluate LV function. 2)Normal LV size and systolic function with a LVEF of 63% and normal wall motions. 3)Aortic valve sclerosis noted. 4)Mild MR without MV prolapse. Normal global systolic left ventricular function. There are no regional wall motion abnormalities. Aortic Valve: Aortic leaflets exhibit mild calcification. Exam Details Procedure Ordered: Limited Echo Procedure Status: Routine study Image Quality: Good Facility Location: Cardiac Echo 1 (No Signature Object) Patient: ELOY LESTER Study Date: 10/29/2018 Page 2 of 2 09:34 AM [id number]
--- NOTE | 2018-10-29 12:35 | EPPROC ---
Electrophysiology Procedure Note: Date: 10/29/18 Electronic Equipment Maint Tech: Vel Layton MD Procedures: Implant dual-chamber pacemaker [id number] Indications: 83yo M with symptomatic sick sinus syndrome, trifascicular block. Techniques: Following informed consent, the patient was brought to the EP lab in a fasting nonsedated state, in sinus rhythm. IV antibiotics were administered. IV sedation was provided by the anesthesiology service. The right anterior chest was prepped and draped in usual sterile fashion. Under ultrasound guidance, vascular access was obtained in the extrathoracic portion of the right subclavian vein x2. Cutdown was performed to the deltopectoral fascia, and a subcutaneous pocket was fashioned.. Two 6 [place]uran access sheath were inserted over the wires. Pacing leads were delivered to RV septal and RA appendage positions, and actively fixated. The leads were anchored to the underlying fascia using 2 nonabsorbable sutures around each lead's retention sleeve. The leads were connected to the pulse generator and the system was placed in pocket. A non resorbable stay suture was applied to the can. The pocket was irrigated with antibiotic solution; D stat hemostatic matrix was injected. The incision was closed in layers using absorbable sutures and dressed with Steri-Strips. Final fluoro showed stable system position and no evidence of pneumothorax. The patient tolerated the procedure well. Pulse generator: Biotronik Edora 8DR-T, SN [id number], implant 10/29/18 DDD 60-130 RA lead: Solia S 45, SN [id number], implant 10/29/18 0.9mV, 390ohms, 0.9V@0.4ms RV lead: Solia S 53, SN [id number], implant 10/29/18 7.9mV, 585ohms, 0.7V@0.4ms EBL: Minimal Complications: None Plan: Bedrest 6 hr postprocedure, chest x-ray in a.m., keep incision dry for 2 weeks, right upper extremity restrictions for 1 month. Patient Problems: Problems Problem Status Onset Back pain Acute Diabetes Acute Elevated PSA Acute Esophageal foreign body Acute Fever of unknown origin Acute Neutropenia, cyclic Acute Renal insufficiency Acute Severe sepsis Acute Thoracic spine tumor Acute
[2018-10-29] MEDS ORDERED: NIACIN ER 500 MG TAB.ER PO SCH (21:00)
[2018-10-29] MEDS: COLESTIPOL HCL 5 GM PO SCH (21:08)
[2018-10-30 04:29] LABS: PLATELET COUNT 239 10^3/uL (150-400)
[2018-10-30] MEDS ORDERED: LEVOTHYROXINE 75 MCG TAB PO SCH (06:00)
--- NOTE | 2018-10-30 06:42 | CPEKG ---
Test Reason : OPEN Blood Pressure : / mmHG Vent. Rate : 042 BPM Atrial Rate : 000 BPM P-R Int : 171 ms QRS Dur : 148 ms QT Int : 622 ms P-R-T Axes : 091 -73 -19 degrees QTc Int : 520 ms Sinus bradycardia Atrial premature complexes in couplets Right bundle branch block Inferior infarct, age indeterminate Confirmed by Nasir Burgos ([id number]) on 10/30/2018 6:41:57 AM Referred By: Mushtaq Layton Confirmed By:Nasir Burgos
--- NOTE | 2018-10-30 06:45 | CPEKG ---
Test Reason : OPEN Blood Pressure : / mmHG Vent. Rate : 060 BPM Atrial Rate : 060 BPM P-R Int : 235 ms QRS Dur : 157 ms QT Int : 500 ms P-R-T Axes : 079 -71 -26 degrees QTc Int : 500 ms Pacemaker spikes or artifacts Sinus rhythm Prolonged PA interval Right bundle branch block Inferior infarct, old Confirmed by Nasir Burgos ([id number]) on 10/30/2018 6:45:10 AM Referred By: Mushtaq Layton Confirmed By:Nasir Burgos
[2018-10-30] MEDS ORDERED: LISINOPRIL 5 MG TAB PO SCH (09:00)
[2018-10-30] MEDS: COLESTIPOL HCL 5 GM PO SCH (09:20)
[2018-10-30] MEDS: ACETAMINOPHEN 325 MG TAB PO PRN (09:20)
[2018-10-30 10:51] VITALS: BP 126/65
--- NOTE | 2018-10-30 13:37 | ASDISCHSUM ---
Discharge Information Plan Status:Home with No Needs Medically Cleared to Leave:10/30/2018 Discharge Date:10/30/2018 CM D/C Disposition:Home, Routine, Self-Care ADT D/C Disposition:Home, Routine, Self-Care Projected Discharge Date:10/30/2018 Transportation at D/C: Discharge Delay Reason: Follow-Up Date:10/30/2018 Discharge Slot: Final Diagnosis: Placement Information Patient Contact Information Contact Name:ZARIA Relationship: Address:[address] City:[place] Alternate Phone: [facility]/Zip Code:[place] [address] Email: Financial Information Financial Class:Medicare Primary Plan Desc:MEDICARE OUTPATIENT Primary Plan Number:[id number] Secondary Plan Desc:SALAZAR ZHANG Secondary Plan Number:[id number] Assessment Information LACE LACE Length of stay for Answers: Less than 1 day current admission Acuity / Level of Answers: No Care: Did the patient have an inpatient admission? Comorbidities - select Answers: Any tumor (including all that apply lymphoma or leukemia) Coronary Artery Disease Diabetes (uncontrolled or controlled) Opioid dependence / Chronic pain Peripheral vascular disease Other Notes: HLD # of Emergency department Answers: 1-2 visits in the last 6 months Score: 12 Date Signed: 10/30/2018 01:36 PM Electronically Signed By:Denisha Viera RN Intervention Information Intervention Type:HEENA-Signed Date of Service:10/30/2018 10:44 AM Patient Type:Observation Staff Member:Mary Lakhani Hours: Discipline: Severity: Comment:
--- NOTE | 2018-10-30 17:48 | GDS ---
[f rep st] DISCHARGE SUMMARY DISCHARGE DIAGNOSES: 1. Bradycardia, sinus pauses. 2. Status post dual-chamber pacemaker implant. 3. Coronary artery disease. 4. History of lymphoma. BRIEF HISTORY: This is an 83-year-old man who has a history of severe bradycardia and sinus pauses with symptoms. He was seen in office and decision was made to proceed with dual-chamber pacemaker implant. He does have a history of coronary artery disease, but has not had any symptoms concerning for angina. He has not had any symptoms of CHF. There was a limited echo done prior to the procedure to ensure preserved LV function. HOSPITAL COURSE: Dr. Layton implanted Biotronik dual chamber pacemaker without complication. The patient did well overnight without any significant discomfort. Pacemaker site is dry and intact with Steri-Strips. No swelling or bleeding. Pacemaker interrogation this morning by the Bi[employer] client representative demonstrated normal functioning. Pacemaker is programmed in the DDD CLS mode with a base rate of 60 and upper track rate of 130 beats per minute. Atrial sensing was 2.9 mV. Atrial capture threshold is 0.7 V at 0.4 msec and impedance was 448 ohms. Right ventricular sensing is 6.6 mV, capture is 0.5 V at 0.4 msec with a lead impedance of 585 ohms. TESTING DONE: Limited echo demonstrated ejection fraction of 63% with mild aortic sclerosis, mild MR without prolapse. EKG demonstrates A pacing and V sensing. Chest x-ray demonstrated good pacemaker lead placement and no pneumothorax. LAB WORK: WBC is 7.04, hemoglobin 11.6, hematocrit 34.3. Sodium is 140, potassium 4.3, chloride 116, bicarb 17, BUN 31, creatinine 1.0, glucose is 105, calcium is 8.6. On October 27, TSH was 1.1. PHYSICAL EXAMINATION: VITAL SIGNS: Blood pressure is 136/61, pulse is 60, respirations 12, temperature 36.8, O2 saturation is 92% on room air. GENERAL: The patient is alert and oriented sitting up in bed in no acute distress. SKIN : Pacemaker incision site is dry and intact with Steri-Strips. No bleeding, swelling, or significant tenderness. CARDIAC: Regular rate and rhythm without murmur, rub, or gallop. LUNGS: Clear to auscultation. EXTREMITIES: No discoloration. No lower extremity edema. DISCHARGE INSTRUCTIONS: Patient was given verbal and written instructions for post-pacemaker implant restrictions, including keeping left arm below shoulder height and do not pull it behind self for 4 weeks. No lifting over 10 pounds for 4 weeks. No shower for 2 weeks. DISCHARGE MEDICATIONS: Please see discharge medication reconciliation. Of note , he was instructed to restart his Eliquis tomorrow morning. FOLLOWUP: He has followup scheduled November 12 at 1:30 for pacemaker check and wound check. /[id number]/MODL ADDENDUM Vel Layton MD - agree with assessment and plan as described by Ms Mitchell. Uneventful postop course from DC PM implant. MTDD
--- NOTE | 2018-11-05 08:44 | CPEKG ---
Test Reason : OPEN Blood Pressure : / mmHG Vent. Rate : 063 BPM Atrial Rate : 063 BPM P-R Int : 160 ms QRS Dur : 156 ms QT Int : 546 ms P-R-T Axes : 025 -69 000 degrees QTc Int : 560 ms Atrial-paced complexes Right bundle branch block Prolonged CA on prior is no longer noted Confirmed by Joe Daniels ([id number]) on 11/05/2018 8:44:03 AM Referred By: Mushtaq Layton Confirmed By:Joe Daniels
== END 2018-10-30 13:50 | disposition home or self-care (01) ==
LOC: FCATH 08:47 → F2W 11:22
PROVIDERS: ADMIT Internal Medicine Cardiovascular Disease; ATTEND Internal Medicine Cardiovascular Disease
PROC: 0JH604Z Insertion of Pacemaker, Single Chamber into Chest Subcutaneous Tissue and Fascia, Open Approach (ICD-10-PCS; principal; 2018-10-29)
PROC: 02HK3JZ Insertion of Pacemaker Lead into Right Ventricle, Percutaneous Approach (ICD-10-PCS; principal; 2018-10-29)
PROC: 02H63JZ Insertion of Pacemaker Lead into Right Atrium, Percutaneous Approach (ICD-10-PCS; principal; 2018-10-29)
DX: I49.5 Sick sinus syndrome (principal); I25.10 Atherosclerotic heart disease of native coronary artery without angina pectoris; E11.610 Type 2 diabetes mellitus with diabetic neuropathic arthropathy; E03.9 Hypothyroidism, unspecified; G47.33 Obstructive sleep apnea (adult) (pediatric); Z85.72 Personal history of non-Hodgkin lymphomas; Z95.1 Presence of aortocoronary bypass graft; Z92.21 Personal history of antineoplastic chemotherapy
CPT/HCPCS: 33208; 71046; 93005; 93308; A4649; C1785; C1898; J0690; J2704; J3010

== ENCOUNTER 2018-12-21 18:49 | Emergency (ER) | payer OTHER ==
[2018-12-21 19:39] LABS: PLATELET COUNT 244 10^3/uL (150-400)
--- NOTE | 2018-12-21 20:06 | EDPHY ---
H & P Stated Complaint: fever, sore throat, cough x1day Time Seen by Provider: 12/21/18 19:52 HPI/ROS: CHIEF COMPLAINT: Sore throat, runny nose HISTORY OF PRESENT ILLNESS: The patient is an 83-year-old man with a history of lymphoma now in remission as well as chronic low-grade leukemia, coronary artery disease, type 2 diabetes and status post pacemaker. He developed a sore throat yesterday evening and has had a low-grade temperature of 100 degrees today. No shortness of breath. Intermittent cough that is not unusual for him. No nausea vomiting or GI symptoms. States that he has been constipated recently. Severity: Moderate Modifying factors: None REVIEW OF SYSTEMS: Constitutional: See HPI EENTM: See HPI Respiratory: denies: cough, shortness of breath Cardiac: denies: chest pain, irregular heart rate, lightheadedness, palpitations Gastrointestinal/Abdominal: denies: abdominal pain, diarrhea, nausea, vomiting, blood streaked stools Genitourinary: denies: dysuria, frequency, hematuria, pain Musculoskeletal: denies: joint pain, muscle pain Skin: denies: lesions, rash, jaundice, bruising Neurological: denies: headache, numbness, paresthesia, tingling, dizziness, weakness Hematologic/Lymphatic: denies: blood clots, easy bleeding, easy bruising Immunologic/allergic: denies: HIV/AIDS, transplant 10 systems reviewed and negative except as noted EXAM: GENERAL: Well-appearing, well-nourished and in no acute distress. HEAD: Atraumatic, normocephalic. EYES: Pupils equal round and reactive to light, extraocular movements intact, sclera anicteric, conjunctiva are normal. ENT: TMs normal, nares patent, oropharynx clear without exudates. Moist mucous membranes. NECK: Normal range of motion, supple without lymphadenopathy or JVD. LUNGS: Breath sounds clear to auscultation bilaterally and equal. No wheezes rales or rhonchi. HEART: Regular rate and rhythm without murmurs, rubs or gallops. ABDOMEN: Soft, nontender, normoactive bowel sounds. No guarding, no rebound. No masses appreciated. BACK: No CVA tenderness, no spinal tenderness, step-offs or deformities EXTREMITIES: Normal range of motion, no pitting or edema. No clubbing or cyanosis. NEUROLOGICAL: Cranial nerves II through XII grossly intact. Normal speech, normal gait. 5/5 strength, normal movement in all extremities, normal sensation , normal reflexes PSYCH: Normal mood, normal affect. SKIN: Warm, dry, normal turgor, no visible rashes or lesions. Source: Patient Exam Limitations: No limitations - Personal History Current Tetanus/Diphtheria Vaccine: Yes Tetanus Vaccine Date: unknown - Medical/Surgical History Hx Asthma: No Hx Chronic Respiratory Disease: No Hx Diabetes: Yes Hx Cardiac Disease: Yes Hx Renal Disease: No Hx Cirrhosis: No Hx Alcoholism: No Hx HIV/AIDS: No Hx Splenectomy or Spleen Trauma: Yes Other PMH: htn, high cholesterol, hypothyroid, cabg, leukemia, total r knee x 2 , left shoulder replacement, spleenectomy for leukemia. lymphoma (dx 10/2014) trx chemo and radiation, prostate ca (2016), PE. diabetes - Family History Significant Family History: No pertinent family hx - Social History Smoking Status: Never smoked Alcohol Use: None Constitutional: Initial Vital Signs Temperature (C) 37.4 C 12/21/18 19:04 Heart Rate 60 12/21/18 19:04 Respiratory Rate 18 12/21/18 19:04 Blood Pressure 114/50 L 12/21/18 19:04 O2 Sat (%) 92 12/21/18 19:04 O2 Delivery Mode Room Air Allergies/Adverse Reactions: Iodinated Contrast- Oral and IV Dye [IV Dye, Iodine Containing Contrast ] Allergy (Verified 12/21/18 19:06) YEARS AGO HAD-VEINS "POPPED UP AND WERE HARD" Home Medications: Medication Instructions Recorded Herbals/Supplements -Info Only 1 ea PO DAILY 06/17/15 Lisinopril [Zestril 5 mg (*)] 5 mg PO DAILY 06/17/15 Ascorbic Acid [Vitamin C 500 mg 500 mg PO DAILY 10/29/18 (*)] Colestipol HCl 5 gm PO BID 10/29/18 Levothyroxine [Synthroid 75 mcg 75 mcg PO DAILY06 10/29/18 (*)] Niacin ER [Niaspan 500 mg (*)] 500 mg PO HS 10/29/18 Acetaminophen [Tylenol 325mg (*)] 650 mg PO Q6HRS PRN tab 10/30/18 Apixaban [Eliquis] 5 mg PO BID #0 10/30/18 Azithromycin 250 mg PO DAILY #4 tablet 12/21/18 Medical Decision Making - Diagnostics Imaging: I viewed and interpreted images myself ED Course/Re-evaluation: Patient is not neutropenic. His white blood cell count is slightly elevated. Rapid strep is negative. Cultures pending. The patient is well appearing. Clear breath sounds and stable vital signs. Lactate is reassuring. I will call Dr. Painter at but likely recommend antibiotics for pharyngitis and follow up as an outpatient. 8:30 p.m. Discussed the case with Dr. Painter who agrees with antibiotics and follow up as outpatient. Patient and family feel comfortable with this. Differential Diagnosis: Partial list of the Differential diagnosis considered include but were not limited to; pharyngitis, sinusitis, and although unlikely based on the history and physical exam, I also considered pneumonia, sepsis, neutropenia. I discussed these differential diagnoses and the plan with the patient as well as the usual and expected course. The patient understands that the diagnosis is provisional and that in medicine we are not always correct and that further workup is often warranted. Usual and customary warnings were given. All of the patient's questions were answered. The patient was instructed to return to the emergency department should the symptoms at all worsen or return, otherwise to followup with the physician as we discussed. - Data Points Laboratory Results: Laboratory Results 12/21/18 19:25 12/21/18 19:25 12/21/18 Unknown Group A Strep DNA NEGATIVE (NEGATIVE) Medications Given: Discontinued Medications Azithromycin (Zithromax) 500 mg PO EDNOW ONE PRN Reason: Protocol Stop: 12/21/18 20:29 Last Admin: 12/21/18 20:32 Dose: 500 mg Departure - Departure Disposition: Home, Routine, Self-Care Clinical Impression: Pharyngitis Qualifiers: Pharyngitis/tonsillitis etiology: unspecified etiology Qualified Code(s): J02.9 - Acute pharyngitis, unspecified Condition: Good Instructions: Pharyngitis (ED) Referrals: Pete Painter MD [Primary Care Provider] - As per Instructions Prescriptions: Azithromycin 250 mg PO DAILY #4 tablet
[2018-12-21 20:25] VITALS: BP 133/63
[2018-12-21] MEDS ORDERED: AZITHROMYCIN 250 MG TAB PO ONE (20:28)
== END 2018-12-21 20:52 | disposition home or self-care (01) ==
DX: J02.9 Acute pharyngitis, unspecified (principal); I11.9 Hypertensive heart disease without heart failure; I25.10 Atherosclerotic heart disease of native coronary artery without angina pectoris; E11.610 Type 2 diabetes mellitus with diabetic neuropathic arthropathy; E03.9 Hypothyroidism, unspecified; Z95.1 Presence of aortocoronary bypass graft

== ENCOUNTER 2018-12-25 12:42 | Emergency (ER) | payer OTHER ==
--- NOTE | 2018-12-25 13:06 | EDPHY ---
HPI/HX/ROS/PE/MDM Narrative: CHIEF COMPLAINT: Fever, cough HPI: The patient is a 83-year-old male who was seen in the emergency department approximately 4 days ago for fever and cough. He had a negative workup and was started on a Z-Handy. He returns at the advice of his primary physician as his fever and cough have continued. His T-max is 101.8 degrees at home. He continues to have a dry nonproductive cough. Does complain of some left ear discomfort and ringing. He denies dysuria, abdominal pain, vomiting or diarrhea. REVIEW OF SYSTEMS: Aside from elements discussed in the HPI, a comprehensive 10-point review of systems was reviewed and is negative. PMH: Includes SVT, coronary artery disease SOCIAL HISTORY: . Primary physician is through Dr. Painter office. PHYSICAL EXAM: General:Patient is alert, in no acute distress. He is comfortable and well- appearing. ENT:Eyes are normal to inspection. Left TM is mildly erythematous and possibly mildly bulging. Neck: Normal inspection. Full range of motion. Respiratory:No respiratory distress. Breath sounds normal bilaterally. Cardiovascular: Regular rate and rhythm. Strong peripheral pulses. Normal cap refill. Abdomen:The abdomen is nontender to palpation. There are no peritoneal signs. There are normal bowel sounds. Back: Normal to inspection. No tenderness to palpation. Skin: Normal color. No rash. Warm and dry. Extremities: Normal appearance. Full range of motion. Neuro: Oriented x3. Normal motor function. Normal sensory function. ED Course: This 83 y/o male presents with ongoing fever and cough despite treatment with z- pack beginning four days ago. He arrives at the request of his primary care provider who has requested several lab studies including CBC, chemistries, CRP, lactate, ESR, IgG subclasses, blood cultures. I will perform these as well as a chest x-ray, UA, and flu swab. Reviewed laboratory studies. These are notable for elevated WBC of 12,500. Flu swab negative. IgGs pending. Reviewed chest x-ray. See radiologist report below for details. Spoke with Uzma Yañez NP. She is comfortable with outpatient followup for this patient. Plan to administer 1g IV Rocephin here in the emergency department prior to discharge. Reassessed patient. Discussed imaging and laboratory results. Plan to discharge home in good condition. Follow up and return precautions discussed. The patient is comfortable with this plan. - Data Points Imaging Results: Imaging Impressions Chest X-Ray 12/25/18 12:56 Impression: New indistinct right basilar opacities most likely representing atelectasis or less likely pneumonia. Imaging: I viewed and interpreted images myself Laboratory Results: Laboratory Results 12/25/18 13:30 12/25/18 12/25/18 12/25/18 13:30 13:30 13:30 WBC RBC Hgb Hct 32.1 % L % (40.0-51.0) MCV MCH MCHC RDW Plt Count MPV Neut % (Auto) Lymph % (Auto) Loving % (Auto) Eos % (Auto) Baso % (Auto) Nucleat RBC Rel Count Absolute Neuts (auto) Absolute Lymphs (auto) Absolute Monos (auto) Absolute Eos (auto) Absolute Basos (auto) Absolute Nucleated RBC Immature Gran % Seg Neutrophils % Band Neutrophils % Lymphocytes % Monocytes % Eosinophils % Basophils % Metamyelocytes % Myelocytes % Promyelocytes % Blast Cells % Immature Gran # Absolute Seg Neuts Absolute Band Neuts Absolute Lymphocytes Absolute Monocytes Absolute Eosinophils Absolute Basophils Absolute Metamyelocyte Absolute Myelocytes Absolute Promyelocytes Absolute Plasma Cells Nucleated RBCs Absolute Blast Cells Plasma Cells % Platelet Estimate Polychromasia Oval Macrocytes Echinocytes ESR 56 MM/HR H MM/HR (0-20) VBG Lactic Acid Lactate Dehydrogenase 546 IU/L IU/L (313-618) C-Reactive Protein Pending Nasal Influenza A PCR Nasal Influenza B PCR IgG Total Pending IgG1 Pending IgG2 Pending IgG3 Pending IgG4 Pending RSV (PCR) 12/25/18 12/25/18 12/25/18 13:30 13:30 13:30 WBC 12.53 10^3/uL H 10^3/uL (3.80-9.50) RBC 3.09 10^6/uL L 10^6/uL (4.40-6.38) Hgb 10.6 g/dL L g/dL (13.7-17.5) Hct 31.7 % L % (40.0-51.0) MCV 102.6 fL H fL (81.5-99.8) MCH 34.3 pg H pg (27.9-34.1) MCHC 33.4 g/dL g/dL (32.4-36.7) RDW 15.6 % H % (11.5-15.2) Plt Count 231 10^3/uL 10^3/uL (150-400) MPV 9.6 fL fL (8.7-11.7) Neut % (Auto) Not Reported Lymph % (Auto) Not Reported Loving % (Auto) Not Reported Eos % (Auto) Not Reported Baso % (Auto) Not Reported Nucleat RBC Rel Count Not Reported Absolute Neuts (auto) Not Reported Absolute Lymphs (auto) Not Reported Absolute Monos (auto) Not Reported Absolute Eos (auto) Not Reported Absolute Basos (auto) Not Reported Absolute Nucleated RBC Not Reported Immature Gran % Not Reported Seg Neutrophils % 76.8 % % Band Neutrophils % 2.0 % % Lymphocytes % 14.1 % % Monocytes % 5.1 % % Eosinophils % 1.0 % % Basophils % 1.0 % % Metamyelocytes % 0.0 % % Myelocytes % 0.0 % % Promyelocytes % 0.0 % % Blast Cells % 0.0 % % Immature Gran # Not Reported Absolute Seg Neuts 9.62 10^3/uL H 10^3/uL (1.70-6.50) Absolute Band Neuts 0.25 10^3/uL 10^3/uL (0.00-0.70) Absolute Lymphocytes 1.77 10^3/uL 10^3/uL (1.00-3.00) Absolute Monocytes 0.64 10^3/uL 10^3/uL (0.30-0.80) Absolute Eosinophils 0.13 10^3/uL 10^3/uL (0.03-0.40) Absolute Basophils 0.13 10^3/uL H 10^3/uL (0.02-0.10) Absolute Metamyelocyte 0.00 10^3/mL 10^3/mL (0.00-0.00) Absolute Myelocytes 0.00 10^3/mL 10^3/mL (0.00-0.00) Absolute Promyelocytes 0.00 10^3/uL 10^3/uL (0.00-0.00) Absolute Plasma Cells 0.00 10^3/uL 10^3/uL (0.00-0.00) Nucleated RBCs 0 /100 WBC /100 WBC (0-0) Absolute Blast Cells 0.00 10^3/uL 10^3/uL (0.00-0.00) Plasma Cells % 0.0 % % Platelet Estimate ADEQUATE (ADEQ) Polychromasia 1+ H Oval Macrocytes 1+ H Echinocytes 1+ H ESR VBG Lactic Acid 2.1 mmol/L mmol/L (0.7-2.1) Lactate Dehydrogenase C-Reactive Protein Nasal Influenza A PCR NEGATIVE FOR FLU A (NEGATIVE) Nasal Influenza B PCR NEGATIVE FOR FLU B (NEGATIVE) IgG Total IgG1 IgG2 IgG3 IgG4 RSV (PCR) NEGATIVE FOR RSV (NEGATIVE) Medications Given: Discontinued Medications Sodium Chloride (Ns) 500 mls @ 0 mls/hr IV EDNOW ONE; Wide Open PRN Reason: Protocol Stop: 12/25/18 13:52 Last Admin: 12/25/18 14:01 Dose: 500 mls General Time Seen by Provider: 12/25/18 12:53 Initial Vital Signs: Initial Vital Signs Temperature (C) 36.4 C 12/25/18 12:49 Heart Rate 88 12/25/18 12:49 Respiratory Rate 16 12/25/18 12:49 Blood Pressure 126/56 H 12/25/18 12:49 O2 Sat (%) 92 12/25/18 12:49 O2 Delivery Mode Room Air Allergies/Adverse Reactions: Iodinated Contrast- Oral and IV Dye [IV Dye, Iodine Containing Contrast ] Allergy (Verified 12/21/18 19:06) YEARS AGO HAD-VEINS "POPPED UP AND WERE HARD" Home Medications: Medication Instructions Recorded Herbals/Supplements -Info Only 1 ea PO DAILY 06/17/15 Lisinopril [Zestril 5 mg (*)] 5 mg PO DAILY 06/17/15 Ascorbic Acid [Vitamin C 500 mg 500 mg PO DAILY 10/29/18 (*)] Colestipol HCl 5 gm PO BID 10/29/18 Levothyroxine [Synthroid 75 mcg 75 mcg PO DAILY06 10/29/18 (*)] Niacin ER [Niaspan 500 mg (*)] 500 mg PO HS 10/29/18 Acetaminophen [Tylenol 325mg (*)] 650 mg PO Q6HRS PRN tab 10/30/18 Apixaban [Eliquis] 5 mg PO BID #0 10/30/18 Azithromycin 250 mg PO DAILY #4 tablet 12/21/18 Departure - Departure Disposition: Home, Routine, Self-Care Clinical Impression: Cough Fever Qualifiers: Fever type: unspecified Qualified Code(s): R50.9 - Fever, unspecified Condition: Good Instructions: Fever in Adults (ED), Acute Cough (ED) Additional Instructions: Follow up with your primary care provider. Return to the emergency department for worsening shortness of breath, chest pain , high fever, or other worsening of condition or further concerns. Referrals: Pete Painter MD [Primary Care Provider] - As per Instructions Report Scribed for: Alex Wang Report Scribed by: Marii Piña Date of Report: 12/25/18 Time of Report: 15:51 Physician Review and Approval Statement: Portions of this note were transcribed by an ED scribe. I personally performed the history, physical exam, and medical decision making; and confirm the accuracy of the information in the transcribed note.
[2018-12-25 13:43] LABS: PLATELET COUNT 231 10^3/uL (150-400)
[2018-12-25] MEDS ORDERED: NS 500 ML IV ONE (13:51)
[2018-12-25 17:21] VITALS: BP 149/91
== END 2018-12-25 17:21 | disposition home or self-care (01) ==
DX: R05 Cough (principal); R50.9 Fever, unspecified; I47.1 Supraventricular tachycardia; I25.10 Atherosclerotic heart disease of native coronary artery without angina pectoris
CPT/HCPCS: 71046; 96374; 99284; J0696; 82787-90